=== PATIENT | male | born 1990 | race Caucasian/White ===

== ENCOUNTER 2023-10-13 12:00 | Inpatient (IN) | payer MEDICAID ==
[~2023-10-13] VITALS: Ht 195.6 cm; Wt 116.2 kg
[2023-10-13] VITALS (13 sets, daily range): BP systolic 97–127; BP diastolic 36–72; PULSE 78–93; RESP 16–25; TEMP 98; O2SAT 97–100
[2023-10-13] MEDS: normal saline 1000ML IV soln IVB ONE (12:24)
[2023-10-13] MEDS: normal saline 1000ml 1,000 ML IV ONE ×2 (12:24→17:02)
[2023-10-13] MEDS: ketorolac tromethamine 15mg/ml inj. IV ONE (12:26)
[2023-10-13 12:50] LABS: BASOPHILS % (AUTO) 0.6 % (0-1); EOSINOPHILS # (AUTO) 0.1 X10'3 (0-0.9); EOSINOPHILS % (AUTO) 2.2 % (0-6); HEMATOCRIT 42.2 % (42.0-52.0); HEMOGLOBIN 14.1 g/dl (14.0-17.9); LYMPHOCYTES # (AUTO) 1.2 X10'3 (1.1-4.8); LYMPHOCYTES % (AUTO) 20.4 % (21-51); MEAN CORPUSCULAR HEMOGLOBIN 30.7 PG (27.0-31.0); MEAN CORPUSCULAR HGB CONC 33.5 g/dL (33.0-36.5); MEAN CORPUSCULAR VOLUME 91.7 FL (78-98); MEAN PLATELET VOLUME 6.8 FL (7.4-10.4); MONOCYTES # (AUTO) 0.5 X10'3 (0-0.9); MONOCYTES % (AUTO) 8.3 % (2-12); NEUTROPHILS % (AUTO) 68.5 % (42-75); PLATELET COUNT 247 X10'3 (140-440); RED CELL DISTRIBUTION WIDTH 13.7 % (11.5-14.5); WHITE BLOOD COUNT 5.8 X10'3 (4.5-11.0)
[2023-10-13 13:06] LABS: ALBUMIN 3.6 G/DL (3.4-5.0); ANION GAP 13 (8-16); BLOOD UREA NITROGEN 15 MG/DL (7-18); BUN/CREATININE RATIO 10.9 (10.0-20.0); CALCIUM 8.3 MG/DL (8.5-10.1); CHLORIDE 105 MMOL/L (99-107); CREATININE 1.37 MG/DL (0.60-1.10); ETHANOL < 10 MG/DL (<10); GLUCOSE 89 MG/DL (70-104); LIPASE 74 U/L (16-77); MAGNESIUM 2.1 MG/DL (1.5-2.4); PHENYTOIN (DILANTIN) 12.7 UG/ML (10.0-20.0); POTASSIUM 4.4 MMOL/L (3.5-5.1); SODIUM 139 MMOL/L (135-145); eCRCL 98 ML/MIN; eGFR 60 ML/MIN
[2023-10-13 13:25] LABS: BILIRUBIN,URINE NEGATIVE (Neg); CLARITY,URINE CLEAR (Clear); COLOR,URINE YELLOW (Yellow); GLUCOSE, URINE NEGATIVE (Neg); KETONES,URINE NEGATIVE (Neg); LEUKOCYTE ESTERASE ,URINE NEGATIVE (Neg); NITRITES, URINE NEGATIVE (Neg); OCCULT BLOOD,URINE TRACE-INTACT (Neg); PROTEIN,URINE TRACE mg/dl (Neg); UROBILINOGEN,URINE 0.2 E.U/dL (0.2-1.0)
[2023-10-13] MEDS: phenytoin sod ER 100mg capsule PO ONE (13:25)
[2023-10-13] MEDS: diazepam 5mg tablet PO ONE (13:25)
[2023-10-13 13:28] LABS: UA COLLECTION TYPE CLN CATCH MIDSTREAM
[2023-10-13 13:58] LABS: RBC,URINE 0-2 /HPF (0-2); SQUAMOUS EPITHELIAL CELL,UR NONE SEEN /LPF (FEW)
[2023-10-13 14:01] LABS: BACTERIA,URINE FEW /HPF (Neg); WBC,URINE 0-4 /HPF (0-4)
[2023-10-13] MEDS: diazepam inj 5 MG/ML inj. IV ONE ×4 (14:22→18:41)
[2023-10-13] MEDS ORDERED: LORazepam 1 MG tablet PO PRN (14:40)
[2023-10-13] MEDS ORDERED: acetaminophen 325mg tablet PO PRN (14:40)
[2023-10-13] MEDS ORDERED: magnesium 2GM in 50ml NS 50 ML IV PRN (14:40)
[2023-10-13] MEDS ORDERED: magnesium Cl slow-release 64mg tablet PO PRN (14:40)
[2023-10-13] MEDS ORDERED: magnesium 4gm in 100ml NS 100 ML IV PRN (14:40)
[2023-10-13] MEDS ORDERED: potassium Cl 40MEQ/1/2NS 520ml 520 ML IV PRN (14:40)
[2023-10-13] MEDS ORDERED: LORazepam 2 mg/ml vial IV PRN (14:40)
[2023-10-13] MEDS ORDERED: ondansetron/PF 4mg/2ml inj IV PRN (14:40)
[2023-10-13] MEDS ORDERED: potassium Cl 20 mEq SR tablet PO PRN ×2 (14:40)
[2023-10-13] MEDS ORDERED: haloperidol 5mg tablet PO PRN (15:05)
[2023-10-13] MEDS: normal saline 1000ml 1,000 ML IV SCH ×2 (15:08→22:20)
[2023-10-13] MEDS: haloperidol lactate 5mg/ml inj IM PRN (15:57)
[2023-10-13] MEDS ORDERED: phenytoin sod 50mg/ml 2ml vial IV ONE (16:00)
[2023-10-13] MEDS ORDERED: levetiracetam inj 1,000 MG in normal saline 100ml IV soln 100 ML IV ONE (16:00)
[2023-10-13] MEDS: PHENYTOIN 250 MG/5 ML IV ONE (16:18)
[2023-10-13] MEDS ORDERED: LEVETIRACETAM IV ONE (16:30)
[2023-10-13] MEDS ORDERED: NORMAL SALINE IV ONE ×2 (16:30→17:05)
[2023-10-13 16:31] LABS: CREATINE KINASE 1220 U/L (39-308)
[2023-10-13] MEDS ORDERED: LORazepam 2 mg/ml vial IV ONE (17:00)
[2023-10-13] MEDS ORDERED: FOSPHENYTOIN IV ONE (17:05)
[2023-10-13] MEDS: LORazepam 2 mg/ml vial IV ONE (17:15)
[2023-10-13] MEDS ORDERED: MIDAZolam 5mg/ml 2ml vial IV ONE (17:15)
[2023-10-13] MEDS: MIDAZolam 5mg/ml 2ml vial IV STA (17:17)
[2023-10-13] MEDS: MIDAZolam 5mg/ml 2ml vial IV ONE ×3 (17:25→18:26)
[2023-10-13] MEDS: NORMAL SALINE IV ONE (17:34)
[2023-10-13] MEDS: FOSPHENYTOIN IV ONE (17:34)
[2023-10-13] MEDS ORDERED: midazolam 100mg in NS 100ml 100 ML IV SCH (18:00)
[2023-10-13] MEDS: diazepam inj 5 MG/ML inj. IV STA (18:15)
[2023-10-13] MEDS: MIDAZOLAM IN NACL,ISO-OSMOT/PF 100 ML IV SCH (18:15)
[2023-10-13] MEDS: succinylcholine 20mg/ml inj IV ONE (18:34)
[2023-10-13 18:48] LABS: ABG BASE EXCESS -8.4 mmol/L (-2.0-2.0); ABG HCO3 17.6 mmol/L (22.0-26.0); ABG OXYGEN SATURATION 80.6 % (94-97); ABG PCO2 (T) 40.2 mmHg (35.0-48.0); ABG PH (T) 7.266 (7.340-7.440); ABG PO2 (T) 50.2 mmHg (75.0-100.0); ALLEN'S TEST Modified; FCOHb 0.1 % (0.0-3.9); FHHb 19.3 % (0.0-5.0); FMetHb 0.4 % (0.0-1.5); FO2Hb 80.2 % (94-97); MODE PRVC; PATIENT TEMPERATURE 38.1; PEEP 5 cm H2O; RESPIRATORY RATE 14 b/min; TIDAL VOLUME 500 mL; TOTAL HEMOGLOBIN 14.9 G/dl (14.0-17.9)
[2023-10-13] MEDS ORDERED: propofol 1000mg/100ml bottle 100 ML IV SCH (18:55)
[2023-10-13] MEDS: propofol 1000mg/100ml bottle 100 ML IV SCH (19:10)
[2023-10-13 19:17] LABS: TRIGLYCERIDES 184 MG/DL (20-135)
[2023-10-13] MEDS ORDERED: levetiracetam 250mg tablet PO SCH (20:00)
[2023-10-13] MEDS ORDERED: levetiracetam inj 1,000 MG in normal saline 100ml IV soln 100 ML IV SCH (20:00)
[2023-10-13] MEDS: heparin, porcine 5000 units/ml vial SQ SCH (20:55)
[2023-10-13] MEDS: acetaminophen 325mg tablet PO PRN (20:57)
[2023-10-13 21:27] LABS: ABG OXYGEN SATURATION 99.7 % (94-97); ABG PCO2 (T) 38.7 mmHg (35.0-48.0); ABG PH (T) 7.335 (7.340-7.440); ABG PO2 (T) 324.4 mmHg (75.0-100.0); ALLEN'S TEST Modified; FCOHb 0.2 % (0.0-3.9); FHHb 0.3 % (0.0-5.0); FMetHb 0.2 % (0.0-1.5); FO2Hb 99.3 % (94-97); MODE PRVC; PATIENT TEMPERATURE 37.9; PEEP 5 cm H2O; RESPIRATORY RATE 14 b/min; TIDAL VOLUME 500 mL; TOTAL HEMOGLOBIN 14.1 G/dl (14.0-17.9)
[2023-10-14] VITALS (34 sets, daily range): BP systolic 108–162; BP diastolic 54–94; PULSE 73–92; RESP 14–22; O2SAT 93–100
[2023-10-14 04:07] LABS: ABG BASE EXCESS -3.2 mmol/L (-2.0-2.0); ABG HCO3 21.3 mmol/L (22.0-26.0); ABG OXYGEN SATURATION 99.4 % (94-97); ABG PCO2 (T) 37.3 mmHg (35.0-48.0); ABG PH (T) 7.377 (7.340-7.440); ABG PO2 (T) 177.3 mmHg (75.0-100.0); ALLEN'S TEST Modified; FCOHb 0.4 % (0.0-3.9); FHHb 0.6 % (0.0-5.0); FMetHb 0.3 % (0.0-1.5); FO2Hb 98.7 % (94-97); MODE PRVC; PATIENT TEMPERATURE 37.3; PEEP 5 cm H2O; RESPIRATORY RATE 14 b/min; TIDAL VOLUME 500 mL; TOTAL HEMOGLOBIN 14.2 G/dl (14.0-17.9)
[2023-10-14 06:12] LABS: BASOPHILS % (AUTO) 0.4 % (0-1); EOSINOPHILS % (AUTO) 0.6 % (0-6); HEMATOCRIT 40.5 % (42.0-52.0); HEMOGLOBIN 13.6 g/dl (14.0-17.9); LYMPHOCYTES # (AUTO) 1.5 X10'3 (1.1-4.8); LYMPHOCYTES % (AUTO) 18.9 % (21-51); MEAN CORPUSCULAR HEMOGLOBIN 30.8 PG (27.0-31.0); MEAN CORPUSCULAR HGB CONC 33.7 g/dL (33.0-36.5); MEAN CORPUSCULAR VOLUME 91.5 FL (78-98); MEAN PLATELET VOLUME 6.9 FL (7.4-10.4); MONOCYTES # (AUTO) 1.1 X10'3 (0-0.9); MONOCYTES % (AUTO) 13.3 % (2-12); NEUTROPHILS # (AUTO) 5.5 X10'3 (1.8-7.7); NEUTROPHILS % (AUTO) 66.8 % (42-75); PLATELET COUNT 194 X10'3 (140-440); RED BLOOD COUNT 4.42 X10'6 (4.70-6.10); RED CELL DISTRIBUTION WIDTH 13.5 % (11.5-14.5); WHITE BLOOD COUNT 8.2 X10'3 (4.5-11.0)
[2023-10-14 06:22] LABS: ALANINE AMINOTRANSFERASE 58 U/L (12-78); ALBUMIN 3.4 G/DL (3.4-5.0); ALKALINE PHOSPHATASE 71 IU/L (46-116); ANION GAP 7 (8-16); ASPARTATE AMINO TRANSFERASE 62 U/L (10-37); BILIRUBIN,TOTAL 0.4 MG/DL (0.1-1.0); BLOOD UREA NITROGEN 16 MG/DL (7-18); BUN/CREATININE RATIO 10.7 (10.0-20.0); CALCIUM 8.1 MG/DL (8.5-10.1); CHLORIDE 107 MMOL/L (99-107); GLUCOSE 92 MG/DL (70-104); POTASSIUM 3.9 MMOL/L (3.5-5.1); SODIUM 137 MMOL/L (135-145); TOTAL CARBON DIOXIDE 22.6 MMOL/L (24-32); TOTAL PROTEIN 6.7 G/DL (6.4-8.2); TRIGLYCERIDES 88 MG/DL (20-135); eCRCL 89 ML/MIN; eGFR 54 ML/MIN
[2023-10-14] MEDS: phenytoin 100mg/4ml ***ORAL SUSPENSION OGT SCH (08:15)
[2023-10-14 10:53] LABS: BILIRUBIN,URINE NEGATIVE (Neg); CLARITY,URINE SLIGHTLY CLOUDY (Clear); COLOR,URINE YELLOW (Yellow); GLUCOSE, URINE NEGATIVE (Neg); KETONES,URINE NEGATIVE (Neg); LEUKOCYTE ESTERASE ,URINE NEGATIVE (Neg); NITRITES, URINE NEGATIVE (Neg); OCCULT BLOOD,URINE MODERATE (Neg); PH,URINE 5.5 (4.8-8.0); PROTEIN,URINE NEGATIVE (Neg); UROBILINOGEN,URINE 0.2 E.U/dL (0.2-1.0)
[2023-10-14 11:01] LABS: UA COLLECTION TYPE NON-SPECIFIED
[2023-10-14] MEDS ORDERED: PHEN200C PO (11:10)
[2023-10-14] MEDS ORDERED: FOLI1TAB27 PO (11:10)
[2023-10-14 11:11] LABS: URINE AMPHETAMINE SCREEN NEGATIVE (Neg); URINE BARBITUATE SCREEN NEGATIVE (Neg); URINE BENZODIAZEPINES SCREEN POSITIVE (Neg); URINE CANNABINOID SCREEN POSITIVE (Neg); URINE COCAINE SCREEN NEGATIVE (Neg); URINE METHADONE SCREEN NEGATIVE (Neg); URINE PHENCYCLIDINE SCREEN NEGATIVE (Neg)
[2023-10-14 11:22] LABS: BACTERIA,URINE FEW /HPF (Neg); SQUAMOUS EPITHELIAL CELL,UR NONE SEEN /LPF (FEW); URIC ACID CRYSTALS 4+ /HPF (NEGATIVE); WBC,URINE 0-4 /HPF (0-4)
[2023-10-14] MEDS ORDERED: dextrose 50%-water 50ml dispensing syringe IV PRN ×2 (14:35)
[2023-10-14] MEDS ORDERED: glucagon, human recombinant 1mg kit SUBCUT PRN (14:35)
[2023-10-14] MEDS ORDERED: DEXTROSE 15 GM of carb/4 tabs (each vial/BOTTLE has 4 tablets) PO PRN ×2 (14:35)
[2023-10-15] VITALS (13 sets, daily range): BP systolic 124–156; BP diastolic 62–83; PULSE 66–80; RESP 10–20; O2SAT 94–98
[2023-10-15 06:15] LABS: BASOPHILS % (AUTO) 0.4 % (0-1); EOSINOPHILS # (AUTO) 0.1 X10'3 (0-0.9); EOSINOPHILS % (AUTO) 0.5 % (0-6); HEMATOCRIT 42.5 % (42.0-52.0); HEMOGLOBIN 14.3 g/dl (14.0-17.9); LYMPHOCYTES # (AUTO) 1.6 X10'3 (1.1-4.8); MEAN CORPUSCULAR HEMOGLOBIN 30.9 PG (27.0-31.0); MEAN CORPUSCULAR HGB CONC 33.6 g/dL (33.0-36.5); MEAN CORPUSCULAR VOLUME 91.9 FL (78-98); MONOCYTES # (AUTO) 1.2 X10'3 (0-0.9); MONOCYTES % (AUTO) 11.4 % (2-12); NEUTROPHILS # (AUTO) 7.8 X10'3 (1.8-7.7); NEUTROPHILS % (AUTO) 72.7 % (42-75); PLATELET COUNT 200 X10'3 (140-440); RED BLOOD COUNT 4.62 X10'6 (4.70-6.10); RED CELL DISTRIBUTION WIDTH 13.6 % (11.5-14.5); WHITE BLOOD COUNT 10.7 X10'3 (4.5-11.0)
[2023-10-15 06:37] LABS: ALANINE AMINOTRANSFERASE 60 U/L (12-78); ALBUMIN 3.4 G/DL (3.4-5.0); ALBUMIN/GLOBULIN RATIO 0.9 (1.1-1.5); ALKALINE PHOSPHATASE 79 IU/L (46-116); ANION GAP 11 (8-16); ASPARTATE AMINO TRANSFERASE 68 U/L (10-37); BILIRUBIN,TOTAL 0.7 MG/DL (0.1-1.0); BLOOD UREA NITROGEN 14 MG/DL (7-18); BUN/CREATININE RATIO 9.9 (10.0-20.0); CALCIUM 8.6 MG/DL (8.5-10.1); CHLORIDE 109 MMOL/L (99-107); CREATININE 1.41 MG/DL (0.60-1.10); GLUCOSE 91 MG/DL (70-104); POTASSIUM 3.5 MMOL/L (3.5-5.1); SODIUM 144 MMOL/L (135-145); TOTAL CARBON DIOXIDE 23.8 MMOL/L (24-32); eCRCL 95 ML/MIN; eGFR 58 ML/MIN
[2023-10-15] MEDS: phenytoin 100mg/4ml ***ORAL SUSPENSION PO SCH (08:00)
[2023-10-15] MEDS: folic acid 1mg tablet PO SCH (10:55)
== END 2023-10-15 11:40 | disposition home or self-care (01) | DRG 53 ==
LOC: ER 12:01 → ED HOLD 14:40 → UNDOADMOB 14:40 → ED HOLD 17:05 → OBSVTOIN 17:05 → ED HOLD 20:23 → CICU 2S 20:23
PROVIDERS: ADMIT Internal Medicine; ATTEND Internal Medicine
PROC: 4A00X4Z Measurement of Central Nervous Electrical Activity, External Approach (ICD-10-PCS; principal; 2023-10-13)
PROC: 5A1935Z Respiratory Ventilation, Less than 24 Consecutive Hours (ICD-10-PCS; 2023-10-13)
PROC: 0BH17EZ Insertion of Endotracheal Airway into Trachea, Via Natural or Artificial Opening (ICD-10-PCS; 2023-10-13)
DX: G40.401 Other generalized epilepsy and epileptic syndromes, not intractable, with status epilepticus (principal); J96.00 Acute respiratory failure, unspecified whether with hypoxia or hypercapnia
CPT/HCPCS: 36415; 36600; 70450; 71045; 80048; 80053; 80185; 80305; 80320; 81001; 82550; 82803; 82948; 83605; 83690; 83735; 84478; 85018; 85025; 87040; 87070; 87081; 93005; 94002; 94003; 94640; 94760; 95720; 96372; 96374; 96375; 99291; A4615; A4620; C1758; G0378; J0330; J1165; J1630; J1644; J1885; J2060; J2250; J2704; J3360; J3490; J7030; Q2009